=== PATIENT | female | born 1985 | race Caucasian/White ===

== ENCOUNTER 2022-07-13 20:42 | Inpatient (IN) | payer BC, SELFPAY ==
[2022-07-13] VITALS (47 sets, daily range): BP systolic 77–119; BP diastolic 39–79; PULSE 62–111; RESP 16; TEMP 36.5–36.9; O2SAT 96–98; BMI 30.7
[2022-07-13 14:56] LABS: Appearance Urine Clear (Clear); Bilirubin Urine Negative (Negative); Blood Urine 1+ (Negative); Color Urine Yellow (Yellow); Glucose Urine Negative (Negative); Ketones Urine 3+ (Negative); Leukocyte Esterase Urine Trace (Negative); Nitrite Urine Negative (Negative); Protein Urine Negative (Negative); Specific Gravity Urine >= 1.030 (1.000-1.030); Urobilinogen Urine 0.2 (0.2-1.0)
[2022-07-13 15:16] LABS: Bacteria Urine Few; Squamous Epithelial Cell Urine Few (None-Few)
[2022-07-13] MEDS: LACTATED RINGERS 1000 ML 1,000 ML IV (15:45)
[2022-07-13 16:58] LABS: Amphetamine Screen Urine Negative (Negative); Barbiturate Screen Urine Negative (Negative); Benzodiazepines Screen Urine Negative (Negative); Cannabinoid Screen Urine Negative (Negative); Cocaine Screen Urine Negative (Negative); Methadone Screen Urine Negative (Negative); Methamphetamines Screen Urine Negative (Negative); Opiate Screen Urine Negative (Negative); Oxycodone Screen Urine Negative (Negative); Phencyclidine Screen Urine Negative (Negative); Tricyclic Antidepressant Urine Negative (Negative)
--- NOTE | 2022-07-13 18:18 | CRLHL7_ITS ---
For Patients: As a result of the Cures Act, medical imaging exams and procedure reports are released immediately into your electronic medical record. You may view this report before your referring provider. If you have questions, please contact your health care provider. INDICATION: labor. COMPARISON: None available FINDINGS: Transabdominal examination of the is performed. A single intrauterine gestation is seen in cephalic presentation with regular cardiac activity at 149 beats per minute. The placenta is posterior and is free of the cervical os. The placental grade is 1 and the amniotic fluid volume is normal. The DVP is normal at 5.5 cm. The biophysical profile score is 8/8 with no points off. IMPRESSION: Single intrauterine gestation in a cephalic presentation with regular cardiac activity. Normal DVP at 5.5 cm. Normal biophysical profile score of 8/8. Dictated by Anil Kaur MD @ 07/13/2022 7:31:16 PM (Electronically Signed)
--- NOTE | 2022-07-13 18:37 | P.OBHP_ITS ---
OB - H&P; HPI Antepartum History of Present Illness Time Seen by Provider: 18:00 Date Seen: 07/13/22 Chief complaint: Maternity Narrative: Catherine Hoskins is a 37 year old female who is a who presented with contractions. Dating is based on 31 week ultrasound. By LMP, she believes her due date is 08/22. However, by her ultrasound, her due date is 08/12. She is 34 weeks 2/7 days to 35 weeks 5/7 days gestation. She has had 1 visit. She has had 1 ultrasound at 31 weeks. History of Present Dating criteria: other (based on 31 week ultrasound and approximate LMP) care: limited care Ultrasounds: other (Incomplete anatomy screen at 31 weeks gestation. ) Abnormal ultrasound findings: incomplete 31 week ultrasound Medical complications: none Labs Blood type: A (+) positive Rubella: nonimmune RPR/VDLR: nonreactive GBS status: unknown HBsAG: negative Meds Home Medications and Allergies Home Medications Medication Instructions Recorded Confirmed Type calcium carbonate 200 mg calcium 200 mg PO PRN 07/13/22 07/13/22 History (500 mg) chewable tablet (Antacid (calcium carbonate)) cetirizine PO DAILY 07/13/22 History cetirizine PO DAILY 07/13/22 History vit 122-ferrous fumarate 1 tab PO DAILY 07/13/22 07/13/22 History 27 mg iron-folic acid 800 mcg tablet ( Multi) sertraline 100 mg tablet mg 07/13/22 History sertraline 50 mg tablet mg 07/13/22 History OB - H&P: Exam Physical Exam: Vital signs: Temp Pulse Resp BP Pulse Ox 98.5 F 71 16 117/60 96 07/13/22 18:27 07/13/22 18:27 07/13/22 18:27 07/13/22 18:27 07/13/22 14:27 Constitutional: Constitutional: no acute distress Routine HEENT Exam: Head: Present atraumatic, normal inspection and normocephalic Eye: Present normal appearance ENT: Present mucous membranes moist Routine Neck Exam: Neck: Present full ROM Detailed Neck Exam: Thyroids: Thyroid: Present normal Routine Respiratory Exam: Respiratory: Present CTA bilaterally Routine Cardiovascular Exam: Cardiovascular: RRR, S1 and S2 Routine Abdominal Exam: Abdominal: Present soft Detailed Labor and Delivery Exam: Patient Gravid: yes Dilation (cm): 4 Effacement (%): 70 Fetus (Single): Station: -1 Heart Rate Baseline: 140 Monitor Accelerations: Present Monitor Decelerations: Late (one late to 120 x 2 min) Usp Variability: Moderate (11-25) Routine Skin Exam: Present intact Routine Neurological Exam: Present alert and oriented X3 Routine Psychiatric Exam: Present normal affect OB - Results Labs Labs: Urine 07/13/22 Range/Units 14:40 Urine Color Yellow (Yellow) Urine Appearance Clear (Clear) Urine pH 6.0 (5.0-8.5) Ur Specific [place] >= 1.030 (1.000-1.030) Urine Protein Negative (Negative) Urine Glucose (UA) Negative (Negative) OB - A/P Antepartum Assessment and Plan (1) uterine contractions: Problem details: Patient has contractions every 4-6 minutes. Unchanged with IV fluid bolus. No cervical change, but did have bleeding. Status: Acute (2) Vaginal bleeding during : Problem details: Vaginal bleeding during cervical check and thereafter. 1 late decel. BPP 8. Status: Acute (3) Poor patient attendance of care: Problem details: Patient has had 1 visit and 1 ultrasound at 31 week with incomplete anatomy screen. Is unclear where she wants to deliver. Status: Acute (4) Anemia affecting : Problem details: hemoglobin 9.8 today Status: Acute (5) Anxiety: Problem details: Intermittently taking zoloft. Status: Acute Plan Patient is who presents with unclear dates (around 34-35 weeks gestation) with contractions, bloody show, 1 late decel. UA unclear-- will sent culture. GBS collected. Hemoglobin appears low, will start iron supplementation at discharge if still . Discussed patient's care with [facility]-- who recommend admission for observation overnight and discharge in morning if no further decels, bleeding, cervical change. Patient is agreeable to admission.
[2022-07-13 18:41] LABS: Hemoglobin* 9.9 gm/dL (12.0-16.0)
[2022-07-13 19:27] LABS: Glucose* 75 mg/dL (60-115)
--- NOTE | 2022-07-13 20:58 | P.OBPN_ITS ---
Subjective Time Seen by Provider: 20:59 Date Seen: 07/13/22 Narrative: Patient has progressed to 7 cm, having more painful contractions. Objective Vital Signs: Last Vital Signs Temp 97.7 F 07/13/22 20:00 Pulse 74 07/13/22 20:01 Resp 16 07/13/22 20:00 BP 114/69 07/13/22 20:01 Pulse Ox 96 07/13/22 14:27 Pelvic Exam Dilation (cm): 7 (per nursing) Effacement (%): 80 Contractions Contraction pattern: Regular Contraction intensity: Moderate Assessment Assessment: active labor Station: -1 Status: Category l Heart Rate Baseline: 140 Apprenticeship Representative Variability: Moderate (6-25) Monitor Accelerations: Present Monitor Decelerations: Late (one late to 120 x 2 min) Plan Plan: Admit to inpatient. I will stay on unit given advanced dilation and history of precipitous delivery. Ana Kapoor ([facility]) has been called to bedside for peds.
[2022-07-13] MEDS: LACTATED RINGERS 1000 ML 1,000 ML 999 ML IV (21:00)
[2022-07-13] MEDS: ONDANSETRON 2 MG/ML inj 4 MG IV (21:43)
[2022-07-13 21:55] LABS: SARS PCR* Negative SARS-CoV-2 (Negative)
[2022-07-13] MEDS: LIDOCAINE 2% (PF) 5 ML VIAL EPIDURAL (21:55)
[2022-07-13] MEDS: ROPIVACAINE 0.2% 100 ml 100 ML 12 MG EPIDURAL (21:56)
--- NOTE | 2022-07-13 22:15 | P.ANBPRC_ITS ---
PFSH PFS Social History Smoking Status: Former smoker Meds Home Medications and Allergies Home Medications Medication Instructions Recorded Confirmed Type calcium carbonate 200 mg calcium 200 mg PO PRN 07/13/22 07/13/22 History (500 mg) chewable tablet (Antacid (calcium carbonate)) cetirizine PO DAILY 07/13/22 History cetirizine PO DAILY 07/13/22 History vit 122-ferrous fumarate 1 tab PO DAILY 07/13/22 07/13/22 History 27 mg iron-folic acid 800 mcg tablet ( Multi) sertraline 100 mg tablet mg 07/13/22 History sertraline 50 mg tablet mg 07/13/22 History Allergies Allergy/AdvReac Type Severity Reaction Status Date / Time amoxicillin Allergy Severe Hives Verified 07/13/22 21:22 ampicillin Allergy Severe Hives Verified 07/13/22 21:22 clindamycin Allergy Severe Hives Verified 07/13/22 21:22 erythromycin base Allergy Severe Hives Verified 07/13/22 21:22 Penicillins Allergy Severe Hives Verified 07/13/22 21:22 levaquin Allergy Severe Hives Uncoded 07/13/22 21:21 Results Labs Labs: Laboratory Results - last 24 hr 07/13/22 07/13/22 07/13/22 14:15 14:40 18:37 Hgb 9.9 L Glucose Urine Color Yellow Urine Appearance Clear Urine pH 6.0 Ur Specific [place] >= 1.030 Urine Protein Negative Urine Glucose (UA) Negative Urine Ketones 3+ A Urine Blood 1+ A Urine Nitrite Negative Urine Bilirubin Negative Urine Urobilinogen 0.2 Ur Leukocyte Esterase Trace A Urine RBC 2-5 A Urine WBC 2-5 Ur Squamous Epith Cells Few Urine Bacteria Few A Urine Opiates Screen Negative Ur Oxycodone Screen Negative Urine Methadone Screen Negative Ur Propoxyphene Screen Negative Ur Barbiturates Screen Negative U Tricyclic Antidepress Negative Ur Phencyclidine Scrn Negative Ur Amphetamines Screen Negative U Methamphetamines Scrn Negative U Benzodiazepines Scrn Negative Urine Cocaine Screen Negative U Marijuana (THC) Screen Negative SARS-CoV-2 (PCR) 07/13/22 07/13/22 18:37 21:01 Hgb Glucose 75 Urine Color Urine Appearance Urine pH Ur Specific [place] Urine Protein Urine Glucose (UA) Urine Ketones Urine Blood Urine Nitrite Urine Bilirubin Urine Urobilinogen Ur Leukocyte Esterase Urine RBC Urine WBC Ur Squamous Epith Cells Urine Bacteria Urine Opiates Screen Ur Oxycodone Screen Urine Methadone Screen Ur Propoxyphene Screen Ur Barbiturates Screen U Tricyclic Antidepress Ur Phencyclidine Scrn Ur Amphetamines Screen U Methamphetamines Scrn U Benzodiazepines Scrn Urine Cocaine Screen U Marijuana (THC) Screen SARS-CoV-2 (PCR) Negative SARS-CoV-2 Vital Signs Vital Signs: Last Vital Signs Temp 97.7 F 07/13/22 20:00 Pulse 99 07/13/22 22:15 Resp 16 07/13/22 20:00 BP 99/54 L 07/13/22 22:15 Pulse Ox 98 07/13/22 22:04 Weight: 86.183 kg Height: 167.64 cm Anesthesia Procedures Epidural Insertion Patient Location: OB Start Time: 21:45 Stop Time: 22:20 Start Date: 07/13/22 Stop Date: 07/13/22 Reason for Block: primary anesthetic Patient Position: sitting Performed By: Shawn Camp Preanesthetic Checklist: IV checked, risks and benefits discussed, surgical consent, monitors and equipment checked, pre-op evaluation, timeout performed and anesthesia consent Prep: chlorhexidine gluconate Monitoring: blood pressure monitoring, compliance monitor, continuous pulse oximetry and heart rate Approach: midline Vertebral Space: lumbar (1-5) Needle Type: Tuohy needle Injection Technique: continuous catheter (catheter) Needle gauge: 17 Needle Length (cm): 10 cm Needle Insertion Depth (cm): 5 Catheter Gauge: 19 Catheter Type: multi-orifice Catheter at skin depth (cm): 10 Test Dose Result: negative and lidocaine 1.5% with epinephrine 1 to 200,000
[2022-07-13] MEDS: PHENYLEPHRINE 100 MCG/ML SYRINGE IVP ×2 (22:20→23:23)
[2022-07-13] MEDS: diphenhydrAMINE 50 MG/ML inj IVP (22:22)
[2022-07-13 23:12] LABS: Basophils Absolute Auto 0.01 K/uL (0.00-0.30); Basophils Percent Auto 0.1 % (0.0-3.0); Eosinophils Absolute Auto 0.05 K/uL (0.00-0.50); Eosinophils Percent Auto 0.7 % (0.0-7.0); Hematocrit 29.2 % (33.0-51.0); Hemoglobin* 9.7 gm/dL (12.0-16.0); Immature Granulocytes Abs Auto 0.08 K/uL (0.00-0.30); Immature Granulocytes Pct Auto 1.2 %; Lymphocytes Percent Auto 17.1 % (20-44); Mean Corpuscular HGB Conc 33 gm/dL (32-36); Mean Corpuscular Hemoglobin 29 pg (26-34); Mean Corpuscular Volume 87 fL (80-100); Monocytes Percent Auto 8.7 % (0.0-11.0); Neutrophils Percent Auto 72.2 % (42.0-72.0); Platelet Count* 185 K/uL (140-440); Red Blood Count 3.37 m/uL (4.00-5.20); White Blood Count* 6.86 K/uL (4.50-11.00)
[2022-07-13 23:21] LABS: Slide Review Reflex No
[2022-07-13] MEDS: ePHEDrine sulfate 5 MG/ML inj 10 MG IVP ×2 (23:33→23:54)
[2022-07-14] VITALS (54 sets, daily range): BP systolic 76–127; BP diastolic 39–86; PULSE 61–100; RESP 16; TEMP 36.8–37.1
[2022-07-14] MEDS: LACTATED RINGERS 1000 ML 1,000 ML 125 ML IV ×2 (00:23→02:06)
[2022-07-14] MEDS: ePHEDrine sulfate 5 MG/ML inj 10 MG IVP (01:03)
[2022-07-14] MEDS: PHENYLEPHRINE 100 MCG/ML SYRINGE IVP (01:14)
--- NOTE | 2022-07-14 04:00 | PM.OBPNL ---
Subjective Time Seen by Provider: 04:01 Date Seen: 07/14/22 Narrative: Patient has had epidural, feels right and left are unequal. She feels the pressure of some contractions. Objective Exam: Resting comfortably in bed, no acute distress Vital Signs: Last Vital Signs Temp 98.4 F 07/14/22 02:00 Pulse 81 07/14/22 03:56 Resp 16 07/14/22 02:00 BP 100/58 L 07/14/22 03:56 Pulse Ox 98 07/13/22 22:04 Pelvic Exam Dilation (cm): 7.5 (per nursing) Effacement (%): 80 Station: -1 Contractions Contraction pattern: Regular Contraction intensity: Moderate Assessment Station: -1 Status: Category l Heart Rate Baseline: 140 Monitor Accelerations: Present Monitor Decelerations: Late (one late to 120 x 2 min) Plan Plan: Patient made cervical change from 4-7 cm last evening. Now is stalled with contractions spaced. Discussed with [facility] perinatologist Dr. Armstrong who recommended augmentation and delivery in [place] at this point given her cervical change last evening and advanced cervical dilation. Will plan to augment with pitocin, AROM if needed. Anticipate . Ana Layton is in house for pediatrics.
[2022-07-14] MEDS: OXYTOCIN 30 unit/500 ML in NS 30 UNIT/500 ML BAG IVPB (04:05)
[2022-07-14] MEDS: ROPIVACAINE 0.2% 100 ml 100 ML 12 MG EPIDURAL (05:48)
--- NOTE | 2022-07-14 06:31 | PM.OBPRCVD ---
Procedure Delivery date: 07/14/22 Procedure Done: only Procedure Details: Patient is at who presented for concern of labor on evening of 07/13/22. She had some bloody show and was found to be 4 cm. Was rocco irregularly. She had 1 visit and dates were based on 31 week ultrasound. (Giving gestational age of 35w5d). She had no history of labor but did have history of precipitous deliveries. We elected to admit to observation overnight. She progressed from 4 cm to 7-8 cm in 1 hour and received epidural for analgesia. GBS was collected and vancomycin was given for unknown GBS. Unfortunately patient has several abx allergies and also did not respond well to vancomycin requiring early discontinuation and administration of benadryl. She then made no significant change for several hours (8:30 pm-3:30am). I called [facility]PP (perinatologist) and discussed care. They felt she had too advanced dilation to transfer safely and encouraged me to augment labor and deliver in [place] given gestational age of 35w5d by ultrasound. Pitocin was started and we did AROM of clear fluid at 0424. (moderate amount). Patient then progressed steadily. She became complete at 0550 and started pushing at 0556. She delivered a viable male over intact perineum at 0557 with one push. Baby had nuchal cord that was delivered through and reduced once on maternal abdomen. Baby was stimulated and delayed cord clamping x 30 seconds before handing off to YUNG Billingsley who was in attendance at delivery for . Please see her note for details of resuscitation. Placenta delivered spontaneously at 0606. Placenta was evaluated and is intact with 3 vessel cord. Pitocin was used for uterotonic. Patient had tiny 1st degree tear of perineum that was not bleeding and therefore not repaired. Mom and baby are doing well at the time of this note. However, evaluation of is that he is likely <35 weeks and will be transferred for ongoing care and respiratory support (currently requiring cpap) Events: Other (only 1 visit. 1 ultrasound at 31 weeks gestation. ) Intrapartal Events: Labor Augmentation Delivery augmentation: rupture of membranes and pitocin Delivery monitor: external FHT Route of delivery: Episiotomy description: None Laceration description: Perineal - 1st Degree Estimated blood loss (mL): 100 Anesthesia type: Epidural Disposition: floor Complications: delivery, poor care, incomplete survey. [place] Gender: Male presentation: vertex Placental Delivery Description: Spontaneous Cord Description: 3 Vessels and Nuchal Cord OB Vag Delivery Procedures Additional Procedures ECV: No Cook Catheter Insertion: No NST: Yes D&C: No Laceration Repair: No Tubal Ligation : No Other: No
[2022-07-14] MEDS: DOCUSATE SODIUM 100 MG CAPSULE PO (09:57)
[2022-07-14] MEDS: IBUPROFEN 600 MG TABLET PO (09:57)
[2022-07-14 13:03] LABS: Strep B DNA Probe POSITIVE (Negative)
--- NOTE | 2022-07-14 21:55 | P.DS_ITS ---
DS: Providers Provider Time Seen by Provider: 07:00 Date Seen: 07/14/22 Date of admission: 07/13/22 20:42 Primary care physician: Kelly Gutiérrez MD Admitting Clinician: Kelly Gutiérrez MD Attending Physician on discharge: Kelly Gutiérrez MD Date of Discharge: 07/14/22 DS: Diagnosis Discharge Diagnosis (1) delivery: Status: Acute Problem details: by ultrasound was 35 weeks, but clinically baby is 33-34 weeks gestation. (2) (normal spontaneous vaginal delivery): Status: Acute (3) Anxiety: Status: Acute Problem details: Intermittently taking zoloft. (4) Anemia affecting : Status: Acute Problem details: hemoglobin 9.8 today Exam Narrative: Exam Narrative: Resting comfortably, NAD Const: Vital Signs, click to edit/add: Vital Signs - 24 hr 07/13/22 21:59 07/13/22 22:04 07/13/22 22:08 Temperature Pulse Rate 88 Respiratory Rate Blood Pressure 112/62 Pulse Oximetry 98 98 07/13/22 22:11 07/13/22 22:11 07/13/22 22:13 Temperature Pulse Rate 84 Respiratory Rate Blood Pressure 116/62 108/59 L Pulse Oximetry 07/13/22 22:13 07/13/22 22:15 07/13/22 22:15 Temperature Pulse Rate 91 99 Respiratory Rate Blood Pressure 99/54 L Pulse Oximetry 07/13/22 22:17 07/13/22 22:17 07/13/22 22:19 Temperature Pulse Rate 109 H Respiratory Rate Blood Pressure 100/54 L 79/48 L Pulse Oximetry 07/13/22 22:19 07/13/22 22:21 07/13/22 22:21 Temperature Pulse Rate 101 H 75 Respiratory Rate Blood Pressure 108/66 Pulse Oximetry 07/13/22 22:23 07/13/22 22:23 07/13/22 22:25 Temperature Pulse Rate 70 Respiratory Rate Blood Pressure 115/69 112/70 Pulse Oximetry 07/13/22 22:25 07/13/22 22:27 07/13/22 22:27 Temperature Pulse Rate 102 H 110 H Respiratory Rate Blood Pressure 96/66 Pulse Oximetry 07/13/22 22:29 07/13/22 22:29 07/13/22 22:32 Temperature Pulse Rate 105 H Respiratory Rate Blood Pressure 96/62 115/73 Pulse Oximetry 07/13/22 22:32 07/13/22 22:33 07/13/22 22:33 Temperature Pulse Rate 81 93 Respiratory Rate Blood Pressure 113/71 Pulse Oximetry 07/13/22 22:35 07/13/22 22:35 07/13/22 22:37 Temperature Pulse Rate 104 H Respiratory Rate Blood Pressure 96/56 L 98/60 Pulse Oximetry 07/13/22 22:37 07/13/22 22:39 07/13/22 22:41 Temperature Pulse Rate 86 69 Respiratory Rate Blood Pressure 109/63 99/57 L Pulse Oximetry 07/13/22 22:41 07/13/22 22:43 07/13/22 22:43 Temperature Pulse Rate 86 89 Respiratory Rate Blood Pressure 97/54 L Pulse Oximetry 07/13/22 22:45 07/13/22 22:45 07/13/22 22:47 Temperature Pulse Rate 95 66 Respiratory Rate Blood Pressure 93/55 L 113/62 Pulse Oximetry 07/13/22 22:49 07/13/22 22:49 07/13/22 22:51 Temperature Pulse Rate 90 Respiratory Rate Blood Pressure 104/60 97/59 L Pulse Oximetry 07/13/22 22:51 07/13/22 22:53 07/13/22 22:53 Temperature Pulse Rate 90 98 Respiratory Rate Blood Pressure 98/61 Pulse Oximetry 07/13/22 22:55 07/13/22 22:55 07/13/22 22:57 Temperature Pulse Rate 67 Respiratory Rate Blood Pressure 115/66 107/63 Pulse Oximetry 07/13/22 22:57 07/13/22 22:59 07/13/22 22:59 Temperature Pulse Rate 73 79 Respiratory Rate Blood Pressure 101/59 L Pulse Oximetry 07/13/22 23:01 07/13/22 23:01 07/13/22 23:03 Temperature Pulse Rate 90 Respiratory Rate Blood Pressure 94/56 L 98/59 L Pulse Oximetry 07/13/22 23:03 07/13/22 23:05 07/13/22 23:21 Temperature Pulse Rate 81 78 Respiratory Rate Blood Pressure 115/68 78/44 L Pulse Oximetry 07/13/22 23:21 07/13/22 23:22 07/13/22 23:31 Temperature Pulse Rate 71 65 Respiratory Rate Blood Pressure 84/50 L 86/50 L Pulse Oximetry 07/13/22 23:31 07/13/22 23:36 07/13/22 23:36 Temperature Pulse Rate 63 65 Respiratory Rate Blood Pressure 85/46 L Pulse Oximetry 07/13/22 23:40 07/13/22 23:47 07/13/22 23:47 Temperature Pulse Rate 67 62 Respiratory Rate Blood Pressure 81/46 L 85/49 L Pulse Oximetry 07/13/22 23:50 07/13/22 23:55 07/14/22 00:00 Temperature Pulse Rate 70 68 Respiratory Rate Blood Pressure 77/39 L 86/50 L 92/52 L Pulse Oximetry 07/14/22 00:00 07/14/22 00:05 07/14/22 00:05 Temperature Pulse Rate 63 100 Respiratory Rate Blood Pressure 90/52 L Pulse Oximetry 07/14/22 00:12 07/14/22 00:12 07/14/22 00:15 Temperature Pulse Rate 76 78 Respiratory Rate Blood Pressure 93/53 L 95/51 L Pulse Oximetry 07/14/22 00:25 07/14/22 00:30 07/14/22 00:35 Temperature Pulse Rate 96 69 71 Respiratory Rate Blood Pressure 83/46 L 85/49 L 85/47 L Pulse Oximetry 07/14/22 00:40 07/14/22 00:45 07/14/22 00:50 Temperature Pulse Rate 76 66 71 Respiratory Rate Blood Pressure 83/48 L 89/50 L 79/45 L Pulse Oximetry 07/14/22 00:55 07/14/22 00:55 07/14/22 01:00 Temperature Pulse Rate 82 Respiratory Rate Blood Pressure 82/47 L 76/44 L Pulse Oximetry 07/14/22 01:00 07/14/22 01:05 07/14/22 01:10 Temperature Pulse Rate 79 78 75 Respiratory Rate Blood Pressure 83/49 L 77/39 L Pulse Oximetry 07/14/22 01:16 07/14/22 01:21 07/14/22 01:25 Temperature Pulse Rate 64 100 91 Respiratory Rate Blood Pressure 106/54 L 96/51 L 98/57 L Pulse Oximetry 07/14/22 01:30 07/14/22 01:36 07/14/22 01:40 Temperature Pulse Rate 85 80 Respiratory Rate Blood Pressure 99/55 L 87/50 L 85/45 L Pulse Oximetry 07/14/22 01:40 07/14/22 01:45 07/14/22 01:45 Temperature Pulse Rate 77 76 Respiratory Rate Blood Pressure 84/48 L Pulse Oximetry 07/14/22 01:50 07/14/22 01:55 07/14/22 02:02 Temperature Pulse Rate 80 78 77 Respiratory Rate Blood Pressure 87/49 L 96/53 L 101/59 L Pulse Oximetry 07/14/22 02:05 07/14/22 02:05 07/14/22 02:10 Temperature Pulse Rate 86 85 Respiratory Rate Blood Pressure 98/56 L 99/54 L Pulse Oximetry 07/14/22 02:15 07/14/22 02:20 07/14/22 02:25 Temperature Pulse Rate 85 85 70 Respiratory Rate Blood Pressure 95/53 L 95/54 L 103/57 L Pulse Oximetry 07/14/22 02:00 07/14/22 00:00 07/13/22 22:00 Temperature 98.4 F 98.2 F 97.8 F Pulse Rate Respiratory Rate 16 16 16 Blood Pressure Pulse Oximetry 07/14/22 02:42 07/14/22 02:42 07/14/22 02:56 Temperature Pulse Rate 70 70 Respiratory Rate Blood Pressure 97/52 L 100/59 L Pulse Oximetry 07/14/22 03:11 07/14/22 03:26 07/14/22 03:41 Temperature Pulse Rate 88 77 65 Respiratory Rate Blood Pressure 101/59 L 98/58 L 97/53 L Pulse Oximetry 07/14/22 03:56 07/14/22 04:12 07/14/22 04:12 Temperature Pulse Rate 81 61 Respiratory Rate Blood Pressure 100/58 L 85/50 L Pulse Oximetry 07/14/22 04:27 07/14/22 04:27 07/14/22 04:42 Temperature Pulse Rate 80 Respiratory Rate Blood Pressure 99/63 96/54 L Pulse Oximetry 07/14/22 04:42 07/14/22 04:57 07/14/22 04:57 Temperature Pulse Rate 69 93 Respiratory Rate Blood Pressure 86/50 L Pulse Oximetry 07/14/22 05:12 07/14/22 05:26 07/14/22 05:41 Temperature Pulse Rate 71 68 87 Respiratory Rate Blood Pressure 92/55 L 94/50 L 100/58 L Pulse Oximetry 07/14/22 05:57 07/14/22 05:57 07/14/22 06:12 Temperature Pulse Rate 96 Respiratory Rate Blood Pressure 127/86 111/57 L Pulse Oximetry 07/14/22 06:12 07/14/22 06:26 07/14/22 06:41 Temperature Pulse Rate 85 72 72 Respiratory Rate Blood Pressure 106/60 105/58 L Pulse Oximetry 07/14/22 06:56 07/14/22 07:11 07/14/22 07:26 Temperature Pulse Rate 73 85 75 Respiratory Rate Blood Pressure 107/60 106/63 102/64 Pulse Oximetry 07/14/22 07:41 07/14/22 07:56 07/14/22 11:48 Temperature Pulse Rate 68 88 Respiratory Rate Blood Pressure 115/66 113/64 117/70 Pulse Oximetry 07/14/22 11:48 07/14/22 07:26 07/14/22 12:14 Temperature 98.3 F 98.8 F Pulse Rate 78 Respiratory Rate 16 Blood Pressure Pulse Oximetry Documenting provider has reviewed patient's vital signs: yes Common normals: no apparent distress, average body habitus, oriented x3, no limitations, healthy appearing, alert and well nourished General appearance: cooperative, comfortable, well kempt and well developed HENMT: Common normals: normocephalic, head/scalp atraumatic and external nose normal Head and scalp: normocephalic and atraumatic Face and sinus: normal facial exam Nose: external nose normal and nares normal Neck & C-Spine: Common normals: full ROM and no lymphadenopathy Lymph: Lymphatic: no lymphadenopathy noted Resp: Common normals: normal respiratory effort, no retractions and clear to auscultation bilaterally Auscultation: clear to auscultation bilaterally Cardio: Common normals: regular rate, regular rhythm, S1 normal heart sound and S2 normal heart sound Rate: regular rate Rhythm: regular rhythm Heart sounds: S1 normal and S2 normal GI: Common normals: Normal to inspection, nondistended, normoactive bowel sounds present, soft to palpation and non-tender Palpation: soft : Speculum exam - vagina: vaginal bleeding (scant, appropriate) OB/external & speculum: Yes perineal/vaginal laceration (tiny 1st degree perineal laceration) and Yes vaginal bleeding (scant, appropriate) Uterus: 1/U and firm Lochia: scant Extremity: Common normals: normal to inspection and full ROM Neuro: Common normals: oriented x3 Sensorium/orientation: alert Psych: Appearance: well kempt OB - DS: Summary Hospital Course Hospital Course: The patient is a 37 year old G 5 P 3 at 35 weeks gestation (based on 31 week ultrasound, only had 1 visit) that was admitted to the Center on 07/13/22 for contractions. She had an uncomplicated Vaginaldelivery. She delivered a viable male . She is planning to bottle feed. the patient has done well. Baby was transferred to NICU due to requiring CPAP and appearing 33-34 weeks gestation clinically. Patient requests discharge at 5 hours due to wanting to be with at NICU. Peripartum Data Infant delivery method: Vaginal Laceration description: Perineal - 1st Degree complications: none Infant Gender: Male Infant Discharge Plan: NICU Status at Discharge Functional status at discharge: independent ambulation Overall status at discharge: patient is back to baseline Time Spent with Patient Time attestation: Total time spent providing and/or coordinating discharge services: Time spent: Less than 30 minutes Discharge Plan Discharge Disposition: Home, Self-Care Date of Admission: 07/13/22 20:42 Attending Provider on Discharge: Kelly Gutiérrez Primary Care Provider: Kelly Gutiérrez Condition: Stable Anticipated Discharge Date/Time: 07/14/22 10:00 Discharge Medications: New ferrous sulfate 325 mg (65 mg iron) Tablet 325 mg PO DAILYWM Qty: 90 0RF docusate sodium 100 mg Capsule 100 mg PO DAILY PRNQty: 30 0RF Continued sertraline 100 mg tablet Label Comments: TAKE ONE TABLET BY MOUTH EVERY DAY WITH 50 MG TABLET (150 MG DAILY) sertraline 50 mg tablet Label Comments: TAKE ONE TABLET BY MOUTH EVERY DAY WITH 100 MG TABLET (150 MG DAILY) Multi 27-800 mg-mcg tablet 1 tab PO DAILY calcium carbonate [Antacid (calcium carbonate)] 200 mg calcium (500 mg) tablet,chewable 200 mg PO PRN cetirizine [Zyrtec] PO DAILY Discontinued cetirizine [Children's Zyrtec Allergy] PO DAILY Discharge Orders: Discharge Order (Routine); Ordered 07/14/22 Ordered By: Kelly Gutiérrez Patient Education: OB Over the Counter Medication Information, OB Vaginal/Bottle Feeding Activity Level: Activity as Tolerated Discharge Diet: Regular Follow Up Appointments: Kelly Gutiérrez MD [Primary Care Provider] - (Please schedule visit in 2 weeks and IUD insertion at 8 weeks . Call clinic at [phone] to schedule at [facility]. ) Forms: FAZUA Info Instructions
== END 2022-07-14 12:20 | disposition home or self-care (01) | DRG 560 ==
LOC: OB OUT 20:43 → OB 20:43
PROVIDERS: Admitting Provider Family Medicine; PCP Family Medicine; Visit Provider Family Medicine
DX: O60.14X0 Preterm labor third trimester with preterm delivery third trimester, not applicable or unspecified (principal); Z37.0 Single live birth; O99.344 Other mental disorders complicating childbirth; F41.9 Anxiety disorder, unspecified; O99.02 Anemia complicating childbirth; D64.9 Anemia, unspecified; O46.93 Antepartum hemorrhage, unspecified, third trimester; O70.0 First degree perineal laceration during delivery; Z3A.35 35 weeks gestation of pregnancy
CPT/HCPCS: 01967; 36415; 76819; 80306; 81003; 81015; 82947; 85018; 85025; 86850; 86900; 86901; 87081; 87086; 87185; 87186; 87635; 87653; 88307; 99213; A9270; J1200; J2370; J2405; J2795; J3370; J7120